=== PATIENT | female | born 1940 | race Two or more races ===

== ENCOUNTER 2018-04-19 21:15 | Observation (INO) | payer MEDICAID, OTHER ==
[~2018-04-19] VITALS: Ht 160 cm; Wt 122.6 kg
[2018-04-19] MEDS ORDERED: DILTIAZEM PO (21:29)
[2018-04-19] MEDS ORDERED: LOVASTATIN PO (21:29)
[2018-04-19] MEDS ORDERED: LISINOPRIL PO (21:29)
[2018-04-19] MEDS ORDERED: RANEXA PO (21:29)
[2018-04-19] MEDS ORDERED: NITROGLYCERIN SL (21:29)
[2018-04-19] MEDS ORDERED: PROVENTIL INH (21:29)
[2018-04-19] MEDS ORDERED: SODIUM CHLORIDE FLUSH 10ML SYR IVF ONE (22:30)
[2018-04-19 22:31] LABS: BASOPHILS # (AUTO) 0.03 x10^3/uL (0-0.1); BASOPHILS % (AUTO) 0 % (0-1); EOSINOPHILS # (AUTO) 0.22 x10^3/uL (0-0.4); EOSINOPHILS % (AUTO) 2 % (1-7); LYMPHOCYTES # (AUTO) 1.72 x10^3/uL (1-3.4); LYMPHOCYTES % (AUTO) 18 % (22-44); MD NO; MEAN CORPUSCULAR HEMOGLOBIN 29.9 pg (27.0-34.8); MEAN CORPUSCULAR HGB CONC 34.2 g/dL (32.4-35.8); MEAN CORPUSCULAR VOLUME 87.5 fL (80-100); MONOCYTES # (AUTO) 0.82 x10^3/uL (0.2-0.8); MONOCYTES % (AUTO) 8 % (2-9); NEUTROPHILS # (AUTO) 7.01 x10^3/uL (1.8-6.8); NEUTROPHILS % (AUTO) 72 % (42-75); PLATELET COUNT 217 x10^3/uL (130-400); RED BLOOD COUNT 4.31 x10^6/uL (3.82-5.3); RED CELL DISTRIBUTION WIDTH 14.1 % (9.6-15.2)
[2018-04-19 22:40] LABS: ALANINE AMINOTRANSFERASE 20 U/L (12-78); ALBUMIN 3.2 g/dL (3.4-5.0); ANION GAP 6 mmol/L (5-15); CALCIUM 9.8 mg/dL (8.5-10.1); CHLORIDE 110 mmol/L (98-107); CREATININE 0.99 mg/dL (0.55-1.02)
[2018-04-19 22:44] LABS: ALKALINE PHOSPHATASE 78 U/L (45-117); BILIRUBIN,TOTAL 0.6 mg/dL (0.2-1.0); TOTAL PROTEIN 7.2 g/dL (6.4-8.2); TROPONIN I < 0.015 ng/mL (0.000-0.045)
[2018-04-19 22:53] LABS: INTERNATIONAL NORMALIZED RATIO 0.97 (0.93-1.1)
[2018-04-19] MEDS ORDERED: SODIUM CHLORIDE 0.9% 1,000 ML IV SCH (23:35)
[2018-04-20] MEDS ORDERED: DOCUSATE 100 MG CAPSULE PO PRN
[2018-04-20] MEDS ORDERED: LABETALOL 5MG/ML, 20ML IVPush PRN
[2018-04-20] MEDS ORDERED: ACETAMINOPHEN 325 MG TABLET PO PRN
[2018-04-20] MEDS ORDERED: ENOXAPARIN 40 MG/0.4 ML SQ SCH
[2018-04-20] MEDS ORDERED: ONDANSETRON 2MG/ML, 2ML IVPush PRN
[2018-04-20] MEDS ORDERED: BISACODYL 10 MG SUPP PR PRN
[2018-04-20] MEDS ORDERED: NITROGLYCERIN 0.4 MG BOTTLE (25 TABS) SL PRN
[2018-04-20] MEDS ORDERED: POLYETHYLENE GLYCOL 17 GM PACKET PO PRN
[2018-04-20] MEDS ORDERED: DILT240T8 PO (00:33)
[2018-04-20] MEDS ORDERED: LISI-420 PO (00:34)
[2018-04-20] MEDS ORDERED: MAGN400T26 PO (00:36)
[2018-04-20] MEDS ORDERED: CLOP75TA PO (00:37)
[2018-04-20] MEDS ORDERED: SIMV40TA3 PO (00:38)
[2018-04-20] MEDS ORDERED: RANO500T2 PO ×2 (00:40→12:27)
[2018-04-20] MEDS ORDERED: NITR0.4T SL (00:42)
[2018-04-20] MEDS ORDERED: CHOL10003 PO (00:45)
[2018-04-20] MEDS ORDERED: ASPI-696 PO (00:46)
[2018-04-20] MEDS ORDERED: FLUT1DIS3 INH (00:47)
[2018-04-20] MEDS ORDERED: ALBU6.7H INH (00:48)
[2018-04-20 01:39] VITALS: BP 143/86
[2018-04-20 04:04] LABS: ANION GAP 5 mmol/L (5-15); CALCIUM 9.6 mg/dL (8.5-10.1); CHLORIDE 109 mmol/L (98-107); CHOLESTEROL, TOTAL 93 mg/dL (140-239); CREATININE 1.04 mg/dL (0.55-1.02); TRIGLYCERIDES 99 mg/dL (50-200); VLDL CHOLESTEROL 20 mg/dL (0-25)
[2018-04-20 04:08] LABS: CHOL/HDL RATIO 2.4; HDL CHOL % 42 % (28-40); HDL CHOLESTEROL (DIRECT) 39 mg/dL (40-60); LDL CHOLESTEROL,CALCULATED 34 mg/dL (54-169); LDL/HDL RATIO 0.9 (0.5-3.0); TROPONIN I < 0.015 ng/mL (0.000-0.045)
[2018-04-20] MEDS ORDERED: ASPIRIN 325 MG TABLET EC PO SCH (06:00)
[2018-04-20 08:00] VITALS: BP 113/73
[2018-04-20 09:33] LABS: TROPONIN I < 0.015 ng/mL (0.000-0.045)
[2018-04-20] MEDS ORDERED: ONDANSETRON 4 MG TABLET ONE (10:17)
[2018-04-20] MEDS ORDERED: RANOLAZINE 500 MG TAB.ER.12H PO SCH (11:00)
[2018-04-20] MEDS ORDERED: ENOXAPARIN 30 MG/0.3 ML SQ SCH (18:00)
== END 2018-04-20 15:17 | disposition home or self-care (01) ==
LOC: ED 23:50 → EDIP 23:53 → UNDOADMIN 23:53 → INTOOBSV 23:53 → 5SO 04-20 00:28
PROVIDERS: ADMIT Internal Medicine; ATTEND Family Medicine
DX: I25.119 Atherosclerotic heart disease of native coronary artery with unspecified angina pectoris (principal); E78.5 Hyperlipidemia, unspecified; J45.909 Unspecified asthma, uncomplicated; G47.33 Obstructive sleep apnea (adult) (pediatric); R73.9 Hyperglycemia, unspecified; I11.9 Hypertensive heart disease without heart failure; E44.1 Mild protein-calorie malnutrition
CPT/HCPCS: 36415; 71045; 80048; 80053; 80061; 83690; 83880; 84484; 85025; 85610; 85730; 93005; 96361; 96372; 96374; 99285; G0378; J1650; J2405; J7030